=== PATIENT | male | born 2000 | race Caucasian/White ===

== ENCOUNTER 2021-04-06 19:25 | Inpatient (IN) | payer BC, SELFPAY ==
[2021-04-06 20:10] VITALS: BMI 21.2
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
[2021-04-07] MEDS: OLANZapine 10 MG VIAL IM (00:44)
[2021-04-07 00:50] VITALS: BP 140/91; PULSE 104; RESP 18; TEMP 37; O2SAT 100
[2021-04-07 01:05] VITALS: BP 139/76; PULSE 76; RESP 18; TEMP 37.1; O2SAT 100
[2021-04-07] MEDS: diphenhydrAMINE HCL 25 MG TABLET 50 MG PO (01:09)
[2021-04-07] MEDS: Acetaminophen 325 MG TABLET 650 MG PO (01:09)
[2021-04-07 01:30] VITALS: RESP 18
--- NOTE | 2021-04-07 01:33 | PC.NURSE ---
Addendum entered by Leslie Orosco RN 04/07/21 04:26: Correction: At 00:44am (not 00:45am) IM Zyprexa 10mg is administered to Left Deltoid without incident. Original Note: Patient is alert to self and recognizes he is in a hospital, though is vague on name. Not alert to date/time/situation. Patient is dressed in his own T-shirt with hospital Raghav Pants. His hygiene is poor. He is noted to have skin build-up/dirt to scalp with skin irritation/rash to forehead/scalp. Brown dirt comes off his skin when cleansed with an alcohol pad. Patient presents with pressured loud speech pattern and manic behaviors; Grandiose protestant/magical thought content with poor insight and judgment. Patient carries a large Nearpod Bible around with him, reading passages to other patients unprovoked. Patient insists his Rights are being violated, he is being held against his will. He demands to have a repairer present and then makes several protestant based statements. Patient paces throughout the unit from time of arrival till approximately 01:15am. Patient is intrusive with staff and peers; touching them with items, hugging, shoving papers in front of them, asking them if they know their rights, sitting, standing, walking directly next to them almost touching and demanding they play games with him. Patient follows staff member into nutrition room and starts helping himself to items in the refrigerator. Without warning he hugs the staff member, opens a full gallon of water and begins chugging it. He tells the staff he has bugs crawling on him and that he is crazy. Patient refuses P.O. medications several times throughout evening hours. At approximately 00:00, Patient attempts to enter another patient's room, opening the door and entering the threshold. He is redirected by staff, but immediately turns around and tries to re-enter. Staff certified nursing assistant front the of doorway blocking him from entering. Patient makes threat of violence toward staff, I prefer not to get violent with you, citing he must enter the room due to it being the Portal. Patient is redirected again by a 2nd staff member. Patient continues to try to enter the other patient's room. Security is called and patient is walked down to Dayroom and offered P.O. medications, which he refuses. Patient contracts for safety stating he will stay in Dayroom and not enter another patient's room. As soon as Security officers leave the unit, the patient stands up and walks back down to same patient's room and tries again to enter the room. He is again stopped by staff and redirected to go to his room or Dayroom, which he refuses. Security is called again and patient is escorted to Dayroom. Provider Renita Thomason is contacted to report behaviors and request IM medications as patient refuses P.O. medications. At 00:30 IM Zyprexa 10 mg is ordered. Patient is presented with a choice of P.O. or IM medications. Patient states he refuses both. Patient demands one of the security officers give him his watch. At 00:35 Nursing Internetworking Technician, Shelia Pires notified of situation and possible IM medication restraint. At 00:45am IM Zyprexa 10mg is administered to Left Deltoid without incident. At 00:49 Hospitalist Queenie Carrillo is contacted to assess patient. Patient is provided with emotional support and hydration immediately following IM injection. Vitals are assessed and found to be within normal limits with the exception of a slightly elevated Heart Rate. 00:50 Vitals: Temp-98.6, BP-140/91, HR-104, RR-18, O2- 100%. Patient requests to go to room and go to bed requesting Benadryl and Tylenol at 00:50, Provider Renita Thomason contacted with request and Benadryl is ordered. Patient is provided with hydration options at bedside 01:05 Vitals: Temp - 98.7. BP 139/76, HR-76, RR-18, O2-100%. Benadryl and Tylenol administered at 01:09. 01:15 Vitals: Temp-97.2, BP-140/83, HR-66, RR-16, O2-98% Patient is sleeping, resting comfortably in bed at 01:15am. Respiration Rate at 01:30 is 18, patient is noted by staff to roll over in bed, still resting comfortably. At 01:38 Hospitalist Queenie Carrillo attended patient at bedside for assessment.
--- NOTE | 2021-04-07 01:42 | P.EN_ITS ---
Event Note Date of Service: 04/07/21 Event Note: Called by nurse, patient was being intrusive, uncooperative, disru ptive, invading boundaries of other patients, threatening staff; subsequently, patient was given Zyprexa 10 mg IM at 12:45 a.m.. I evaluated the patient at 0140; he is resting comfortably, in no acute distress.
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
[2021-04-07 03:01] VITALS: BP 140/83; PULSE 66; RESP 16; TEMP 36.2; O2SAT 98
[2021-04-07] MEDS: Haloperidol Lactate 5 MG/ML VIAL 10 MG IM (15:18)
[2021-04-07] MEDS: diphenhydrAMINE HCL 50 MG/ML VIAL IM (15:19)
[2021-04-07] MEDS: LORazepam 2 MG/ML VIAL IM (15:19)
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
[2021-04-07 16:00] VITALS: BP 115/59; PULSE 97; RESP 17; TEMP 37.1; O2SAT 100
--- NOTE | 2021-04-07 16:27 | PC.NURSE ---
This morning patient awoke before 8am, declined breakfast. He required redirection as he was entering other patient's rooms. He pushed on exit doors on the north and south side of unit. Patient stated, You can't keep me here. Let me out now. Patient was encouraged to discuss discharge with his attending physician today. He was placed on constant observation at nursing discretion. Patient was offered prn ativan and zyprexa po which he declined. Patient was observed playing chess, interacting with peer. He was observed writing on his skin with safety pen. He was observed removing pieces from board games. He was noted taking unit items ( i.e. remote control) and storing them in a paper bag which he carried around. He declined visit from parents who presented to the unit. At one point patient tried to exit the unit. He attempted to push through staff at that time but was redirected. Throughout the shift he required frequent redirection out of other pt's rooms. He pulled down his pants in the day room, took apart games and puzzles and generally exhibited disorganized behavior requiring staff redirection.At 1445 patient was again offered zyprexa and ativan po prn but declined. At approximately 1500 patient was redirected out of a peer's room but was resistant to redirection, he reached for a mop handle and chemicals on the housekeeping cart. Security was called and Dr Gomez ordered chemical restraint for safety of patient and others. Patient received the chemical restraint without physical or mechanical restraint. He remained alert and somewaht agitated for approximately 15 minutes, then fell asleep. He remains asleep resting comfortably in bed at present. Vital signs are stable
[2021-04-07 16:55] VITALS: BP 127/66; PULSE 86; RESP 16; TEMP 36.9; O2SAT 100
--- NOTE | 2021-04-08 11:54 | HO.HSGERICON ---
History of Present Illness Data of Consult Service Date: 04/08/21 Primary Care Provider: Gian Barone DO HPI Reason for consult: medical evaluation 18 year male with schiozophrenia and other Psychotic desorder admitted for decompensation. He is very desorganized at the moment and could hardly participate in the evaluation. Nothing he says make sense, however was not agresive. Review of Systems Review of Systems: Yes Unobtainable due to mental status PMFSH Social History Household Members: Family Do you presently have visiting nurse or other home services: No Patient Tobacco Use Status: Never used Tobacco e-Cigarette/Vaping Use: Never Used Currently Displaying Signs/Symptoms of Drug Intoxication Withdrawal: No Advance Directives: No Do you have thoughts of harming others: None Do you have a plan to hurt others: No Plan service: No Sexual orientation: Don't Know Meds Allergies Allergy/AdvReac Type Severity Reaction Status Date / Time No Known Allergies Allergy Verified 04/06/21 20:25 Active Medications: Current Medications Generic Name Dose Route Start Last Admin Trade Name Freq PRN Reason Stop Dose Admin Acetaminophen 650 mg 04/06/21 20:25 04/07/21 01:09 Acetaminophen 325 Mg Tablet PO 650 mg Q6H PRN Administration Headache/Pain Mild Scale (1-3) Al Hydroxide/Mg Hydroxide 30 ml 04/06/21 20:25 Magnesium Hydrox/Alum Hydrox 30 Ml Oral.Susp PO Q6H PRN Heartburn/Nausea Diphenhydramine HCl 50 mg 04/07/21 01:04 04/07/21 01:09 Diphenhydramine Hcl 25 Mg Tablet PO 50 mg Q6H PRN Administration agitation, insomnia Hydroxyzine HCl 25 mg 04/06/21 20:25 Hydroxyzine Hcl 25 Mg Tablet PO Q6H PRN Anxiety Lorazepam 2 mg 04/06/21 21:42 Lorazepam 1 Mg Tablet PO Q4H PRN agitation Magnesium Hydroxide 30 ml 04/06/21 20:25 Milk Of Magnesia 30 Ml Oral.Susp PO DAILY PRN Constipation Olanzapine 5 mg 04/06/21 21:42 Olanzapine 5 Mg Tablet PO Q4H PRN agitation, psychosis Trazodone HCl 50 mg 04/06/21 20:25 Trazodone Hcl 50 Mg Tablet PO BEDTIME PRN Insomnia Assessment and Plan (1) Schizophrenia, unspecified: Status: Acute 20/m with decompensated Schizophrenia/Psychosis--not acute medical issues. Continue present Psychatric care Physical Exam Vital Signs: Last Vital Signs Temp 98.4 F 04/07/21 16:55 Pulse 86 04/07/21 16:55 Resp 16 04/07/21 16:55 BP 127/66 04/07/21 16:55 Pulse Ox 100 04/07/21 16:55 Body Mass Index 21.2 Constitutional Awake and Alert, cooperated for lung and heart exam Cardiovascular RRR, No M/R/G, S1 S2, No S3 S4, No pedal edema Respiratory Lungs clear, No respiratory distress Gastrointestinal Non tender, Non-distended Skin no rash noted Neurological Alert but not oriented Psychological very desorganized Neuro Cranial nerves: Yes CN's II-XII intact bilaterally
[2021-04-08 12:50] VITALS: BP 138/85; PULSE 116; RESP 17; TEMP 36.8; O2SAT 99
--- NOTE | 2021-04-08 14:08 | P.PNPSI_ITS ---
Subjective Subjective Date of Service: 04/08/21 Reason For Visit: Bipolar disorder Interim History: pt seen in his room, lying in bed. squirmy, a bit, pulling sheet over his face covering it and then removing it again. pt requesting discharge, declining and informing pt to sign 3-day notice. MD explains concern for pt's mental health and asks if he would be willing to take medication. pt declines. MD states nevertheless MD is compelled to prescribe but that he may decline when offered. commitment is broached, goodwin warning given. pt states his medicine is rastafarian and he doesn't need to be here or take medication. per staff, pt was chemically restrained yesterday after repeatedly entering peers' rooms, disrobing in the milieu, and taking a mop handle and chemicals from the housekeeping cart. he was given haldol 10, ativan 2, benadryl 50 IM and slept from 4 pm yesterday through 7 am today. once up this morning at 0700, has again been entering peers' rooms. was placed on 1:1 for safety. appearing disorganized to staff, moving objects about the unit, stacking trash cans. Mental Status Exam Mental Status Exam Narrative: appropriately dressed and groomed. PMA of covering and uncovering face with sheet. unable to fully cooperative with interview. speech incr in amount, nml in rate,, nml in loudness, decr in latency, nml in prosody. thoughts disorganized. affect constricted, appropriate to context, normo- intense, non-labile. mood not assessed. no SI/HI/AVH expressed. Diagnostics Vital Signs (24Hr): Vital Signs - 24 hr 04/07/21 16:00 04/07/21 16:55 04/08/21 12:50 Temperature 98.7 F 98.4 F 98.3 F Pulse Rate 97 86 116 H Respiratory Rate 17 16 17 Blood Pressure 115/59 L 127/66 138/85 Pulse Oximetry 100 100 99 Body Mass Index 21.2 Medications Medications Current Medications Generic Name Dose Route Start Last Admin Trade Name Freq PRN Reason Stop Dose Admin Acetaminophen 650 mg 04/06/21 20:25 04/07/21 01:09 Acetaminophen 325 Mg Tablet PO 650 mg Q6H PRN Administration Headache/Pain Mild Scale (1-3) Al Hydroxide/Mg Hydroxide 30 ml 04/06/21 20:25 Magnesium Hydrox/Alum Hydrox 30 Ml Oral.Susp PO Q6H PRN Heartburn/Nausea Diphenhydramine HCl 50 mg 04/07/21 01:04 04/07/21 01:09 Diphenhydramine Hcl 25 Mg Tablet PO 50 mg Q6H PRN Administration agitation, insomnia Hydroxyzine HCl 25 mg 04/06/21 20:25 Hydroxyzine Hcl 25 Mg Tablet PO Q6H PRN Anxiety Lorazepam 2 mg 04/06/21 21:42 Lorazepam 1 Mg Tablet PO Q4H PRN agitation Magnesium Hydroxide 30 ml 04/06/21 20:25 Milk Of Magnesia 30 Ml Oral.Susp PO DAILY PRN Constipation Olanzapine 5 mg 04/06/21 21:42 Olanzapine 5 Mg Tablet PO Q4H PRN agitation, psychosis Trazodone HCl 50 mg 04/06/21 20:25 Trazodone Hcl 50 Mg Tablet PO BEDTIME PRN Insomnia Allergies Allergies Allergy/AdvReac Type Severity Reaction Status Date / Time No Known Allergies Allergy Verified 04/06/21 20:25 Assessment & Plan Assessment & Plan (1) Evelyne: Status: Acute Code(s): F30.9 - Manic episode, unspecified Assessment and Plan: 20/m with decompensated bipolar diathesis --not acute medical issues. Assessment and Plan: offer lithium 450 BID offer zydis 20 QHS PRNs for unsafe behavior or agitation (haldol 10, ativan 2, benadryl 50 IM has worked well). pt planning to file 3-day notice; if he is unable to do so himself, we may need to file one on his behalf. Greater than 50% of the session was spent on counseling and/or coordination of care Reason for contiued inpatient stay Substantial Risk for: inability to function and rapid decompensation
--- NOTE | 2021-04-08 15:23 | PC.NURSE ---
Patient refusing to move away from unit doors during discharge of peer, approx 1310. Multiple staff attempts to direct patient to another care area, or room however patient refused to move. Did not respond to staffs efforts for 1:1 or distraction. Security called, patient continued unresponsive to direction, physical escort to room by security. No further intervention needed at the time.
[2021-04-08 20:00] VITALS: BP 138/80; PULSE 81; TEMP 37.1; O2SAT 97
[2021-04-08] MEDS: diphenhydrAMINE HCL 50 MG/ML VIAL IM (20:22)
--- NOTE | 2021-04-08 20:52 | PC.NURSE ---
possible dystonic reaction with contraction to neck, bending backwards with the occipital portion of head touching his back. Eyes also rolled back. patient attempting to hold his head straight with his hands. benadryl im given without event, results pending. continues with 1:1 observer.
[2021-04-09] MEDS: Lithium Carbonate ER 450 MG TABLET.ER PO ×2 (01:10→23:35)
[2021-04-09] MEDS: diphenhydrAMINE HCL 25 MG TABLET 50 MG PO ×2 (02:07→23:36)
[2021-04-09] MEDS: hydrOXYzine HCL 25 MG TABLET PO (03:07)
[2021-04-09 04:14] VITALS: BP 166/84; PULSE 94; O2SAT 100
[2021-04-09] MEDS: OLANZapine 5 MG TABLET PO (05:25)
[2021-04-09] MEDS: LORazepam 1 MG TABLET 2 MG PO (05:25)
[2021-04-09 06:07] VITALS: BP 144/67; PULSE 95; TEMP 36.6; O2SAT 100
--- NOTE | 2021-04-09 13:14 | P.PNPSI_ITS ---
Subjective Subjective Date of Service: 04/09/21 Reason For Visit: Bipolar disorder Interim History: pt found walkign the halls. presented pt with paperwork on revocation of CV. pt appeared somewhat agitated by the news and demanded to be read his deepali rights and to have copies of sections 7 and 8 of the mental health code provided to him. he was informed a environmental services aide would be assigned to him and was provided with copies of sections 7 and 8. he demanded copies of all [place] mental health related statues; redirected pt to discuss such matters wit [facility] sports attorney once his sports attorney was in touch with him. he had no other requests or concerns. per staff, pt has appeared anxious and tearful, oppositional and uncooperative. testing doors. ate well, visible in milieu. took shower with clothes on, brought trash can into shower with him. yesterday afternoon pt was observed with his head in an awkward position and out of concern for dystonia was given benadryl 50 mg IM x1. took lithium, benadryl, hydroxyzine last night (did not take zyprexa). was awake until the wee hours of the morning; appears to have received some PRNs for sleep at around 0500 (including ativan 2 mg and zyprexa 5 mg). slept after that through at least 0930. Mental Status Exam Mental Status Exam Narrative: appropriately dressed and groomed. PMA of mild tremulousness throughout. unable to fully cooperative with interview. speech incr in amount, rate. nml in loudness, decr in latency, nml in prosody. thoughts focused on legal rights and process. affect constricted, appropriate to context, hyper- intense, min-labile. mood not assessed. no SI/HI/AVH expressed. Diagnostics Vital Signs (24Hr): Vital Signs - 24 hr 04/08/21 20:00 04/09/21 04:14 04/09/21 06:07 Temperature 98.7 F 97.9 F Pulse Rate 81 94 95 Blood Pressure 138/80 166/84 H 144/67 H Pulse Oximetry 97 100 100 Body Mass Index 21.2 Medications Medications Current Medications Generic Name Dose Route Start Last Admin Trade Name Freq PRN Reason Stop Dose Admin Acetaminophen 650 mg 04/06/21 20:25 04/07/21 01:09 Acetaminophen 325 Mg Tablet PO 650 mg Q6H PRN Administration Headache/Pain Mild Scale (1-3) Al Hydroxide/Mg Hydroxide 30 ml 04/06/21 20:25 Magnesium Hydrox/Alum Hydrox 30 Ml Oral.Susp PO Q6H PRN Heartburn/Nausea Diphenhydramine HCl 50 mg 04/07/21 01:04 04/09/21 02:07 Diphenhydramine Hcl 25 Mg Tablet PO 50 mg Q6H PRN Administration agitation, insomnia Hydroxyzine HCl 25 mg 04/06/21 20:25 04/09/21 03:07 Hydroxyzine Hcl 25 Mg Tablet PO 25 mg Q6H PRN Administration Anxiety [place] Carbonate 450 mg 04/08/21 21:00 04/09/21 10:22 [place] Carbonate Er 450 Mg Tablet.Er PO Not Given BID EMMANUEL Lorazepam 2 mg 04/06/21 21:42 04/09/21 05:25 Lorazepam 1 Mg Tablet PO 2 mg Q4H PRN Administration agitation Magnesium Hydroxide 30 ml 04/06/21 20:25 Milk Of Magnesia 30 Ml Oral.Susp PO DAILY PRN Constipation Olanzapine 5 mg 04/06/21 21:42 04/09/21 05:25 Olanzapine 5 Mg Tablet PO 5 mg Q4H PRN Administration agitation, psychosis Olanzapine 20 mg 04/08/21 21:00 04/08/21 22:59 Olanzapine Odt 10 Mg Tab.Rapdis TRANSLINGU Not Given BEDTIME EMMANUEL Trazodone HCl 50 mg 04/06/21 20:25 Trazodone Hcl 50 Mg Tablet PO BEDTIME PRN Insomnia Allergies Allergies Allergy/AdvReac Type Severity Reaction Status Date / Time No Known Allergies Allergy Verified 04/06/21 20:25 Assessment & Plan Assessment & Plan (1) Evelyne: Status: Acute Code(s): F30.9 - Manic episode, unspecified Assessment and Plan: 20/m with decompensated bipolar diathesis --no acute medical issues. Assessment and Plan: offer lithium 450 BID offer zydis 20 QHS PRNs for unsafe behavior or agitation (haldol 10, ativan 2, benadryl 50 IM has worked well). pt filed and then retracted 3-day notice. CV revoked and commitment filed for on 04/09. Greater than 50% of the session was spent on counseling and/or coordination of care Reason for contiued inpatient stay Substantial Risk for: inability to function
[2021-04-09] MEDS: OLANZapine ODT 10 MG TAB.RAPDIS 20 MG TRANSLINGU (23:35)
[2021-04-09 23:57] VITALS: BP 139/67; PULSE 86; TEMP 37.1; O2SAT 100
[2021-04-10] MEDS: LORazepam 1 MG TABLET 2 MG PO (00:14)
--- NOTE | 2021-04-10 12:40 | HO.PSYCHPN ---
Subjective Subjective Date of Service: 04/10/21 Reason For Visit: Bipolar disorder Interim History: MD stopped by pt's room twice in the morning, second time just before noon. pt did not rouse to voice first time, he did rouse to voice second time but then went back to sleep on attempted conversation by MD. it was felt to be more therapeutic to allow pt to sleep than to awaken him. per staff, pt slept until 11 yesterday. after he got up he was pacing, testing doors. some bizarre behavior, such as eating his meal seated on the floor of his room. took lithium ans zyprexa and benadryl and ativan last NOC. Mental Status Exam Mental Status Exam Narrative: pt asleep during multiple attempts at interview. Diagnostics Vital Signs (24Hr): Vital Signs - 24 hr 04/09/21 23:57 Temperature 98.7 F Pulse Rate 86 Blood Pressure 139/67 Pulse Oximetry 100 Body Mass Index 21.2 Medications Medications Current Medications Generic Name Dose Route Start Last Admin Trade Name Harjitq PRN Reason Stop Dose Admin Acetaminophen 650 mg 04/06/21 20:25 04/07/21 01:09 Acetaminophen 325 Mg Tablet PO 650 mg Q6H PRN Administration Headache/Pain Mild Scale (1-3) Al Hydroxide/Mg Hydroxide 30 ml 04/06/21 20:25 Magnesium Hydrox/Alum Hydrox 30 Ml Oral.Susp PO Q6H PRN Heartburn/Nausea Diphenhydramine HCl 50 mg 04/07/21 01:04 04/09/21 23:36 Diphenhydramine Hcl 25 Mg Tablet PO 50 mg Q6H PRN Administration agitation, insomnia Hydroxyzine HCl 25 mg 04/06/21 20:25 04/09/21 03:07 Hydroxyzine Hcl 25 Mg Tablet PO 25 mg Q6H PRN Administration Anxiety [place] Carbonate 450 mg 04/08/21 21:00 04/10/21 12:21 [place] Carbonate Er 450 Mg Tablet.Er PO Not Given BID EMMANUEL Lorazepam 2 mg 04/06/21 21:42 04/10/21 00:14 Lorazepam 1 Mg Tablet PO 2 mg Q4H PRN Administration agitation Magnesium Hydroxide 30 ml 04/06/21 20:25 Milk Of Magnesia 30 Ml Oral.Susp PO DAILY PRN Constipation Olanzapine 5 mg 04/06/21 21:42 04/09/21 05:25 Olanzapine 5 Mg Tablet PO 5 mg Q4H PRN Administration agitation, psychosis Olanzapine 20 mg 04/08/21 21:00 04/09/21 23:35 Olanzapine Odt 10 Mg Tab.Rapdis TRANSLINGU 20 mg BEDTIME EMMANUEL Administration Trazodone HCl 50 mg 04/06/21 20:25 Trazodone Hcl 50 Mg Tablet PO BEDTIME PRN Insomnia Allergies Allergies Allergy/AdvReac Type Severity Reaction Status Date / Time No Known Allergies Allergy Verified 04/06/21 20:25 Assessment & Plan Assessment & Plan (1) Evelyne: Status: Acute Code(s): F30.9 - Manic episode, unspecified Assessment and Plan: / with decompensated bipolar diathesis --no acute medical issues. Assessment and Plan: lithium 450 BID zydis 20 QHS PRNs for unsafe behavior or agitation (haldol 10, ativan 2, benadryl 50 IM has worked well). pt filed and then retracted 3-day notice. CV revoked and commitment filed for on 04/09. pt accepting medication more consistently and sleeping much more starting around 04/09. Greater than 50% of the session was spent on counseling and/or coordination of care Reason for contiued inpatient stay Substantial Risk for: inability to function
[2021-04-11] MEDS: diphenhydrAMINE HCL 25 MG TABLET 50 MG PO ×3 (00:59→20:58)
[2021-04-11 06:00] VITALS: RESP 18; O2SAT 99
--- NOTE | 2021-04-11 07:09 | HO.PSYCHPN ---
Subjective Subjective Date of Service: 04/13/21 Reason For Visit: Bipolar disorder Interim History: Pt reports his christian is God and the sun. He asks if he can go out for fresh air but informed of risk of him eloping as he has been exit seeking. Pt reports wanting to leave hospital today because he has to follow his christian. He reports he only has God as no one else understands what he is going through. He denies SI/HI. He did take olanzapine 20mg prior to fresh air but when out had difficulty being redirected. He was agitated for most of the evening, demanding to be discharged. Review of Systems Review of Systems Yes Unobtainable due to mental status Mental Status Exam Mental Status Exam Narrative: pt asleep during multiple attempts at interview. Diagnostics Vital Signs (24Hr): Vital Signs - 24 hr 04/12/21 19:18 04/12/21 19:30 04/12/21 19:40 Temperature 98.7 F 97.2 F Pulse Rate 168 H 136 H 138 H Respiratory Rate 22 H 20 20 Blood Pressure 116/81 143/90 H Pulse Oximetry 97 98 Body Mass Index 21.2 Medications Medications Current Medications Generic Name Dose Route Start Last Admin Trade Name Freq PRN Reason Stop Dose Admin Acetaminophen 650 mg 04/06/21 20:25 04/07/21 01:09 Acetaminophen 325 Mg Tablet PO 650 mg Q6H PRN Administration Headache/Pain Mild Scale (1-3) Al Hydroxide/Mg Hydroxide 30 ml 04/06/21 20:25 Magnesium Hydrox/Alum Hydrox 30 Ml Oral.Susp PO Q6H PRN Heartburn/Nausea Diphenhydramine HCl 75 mg 04/12/21 08:00 04/12/21 13:17 Diphenhydramine Hcl 25 Mg Tablet PO 25 mg Q6H PRN Administration agitation, insomnia [place] Carbonate 450 mg 04/08/21 21:00 04/13/21 03:36 [place] Carbonate Er 450 Mg Tablet.Er PO Not Given BID EMMANUEL Magnesium Hydroxide 30 ml 04/06/21 20:25 Milk Of Magnesia 30 Ml Oral.Susp PO DAILY PRN Constipation Olanzapine 5 mg 04/06/21 21:42 04/09/21 05:25 Olanzapine 5 Mg Tablet PO 5 mg Q4H PRN Administration agitation, psychosis Olanzapine 20 mg 04/08/21 21:00 04/13/21 03:36 Olanzapine Odt 10 Mg Tab.Rapdis TRANSLINGU Not Given BEDTIME EMMANUEL Trazodone HCl 50 mg 04/06/21 20:25 Trazodone Hcl 50 Mg Tablet PO BEDTIME PRN Insomnia Allergies Allergies Allergy/AdvReac Type Severity Reaction Status Date / Time No Known Allergies Allergy Verified 04/06/21 20:25 Assessment & Plan Assessment & Plan (1) Evelyne: Status: Acute Code(s): F30.9 - Manic episode, unspecified Assessment and Plan: / with decompensated bipolar diathesis --no acute medical issues. Assessment and Plan: lithium 450 BID zydis 20 QHS PRNs for unsafe behavior or agitation (haldol 10, ativan 2, benadryl 50 IM has worked well). pt filed and then retracted 3-day notice. CV revoked and commitment filed for on 04/09. pt accepting medication more consistently and sleeping much more starting around 04/09. Greater than 50% of the session was spent on counseling and/or coordination of care Reason for contiued inpatient stay Substantial Risk for: inability to function
[2021-04-11] MEDS: OLANZapine ODT 10 MG TAB.RAPDIS 20 MG TRANSLINGU (10:29)
--- NOTE | 2021-04-11 10:45 | PC.NURSE ---
Per provider Priya Coelho give pt unscheduled dose of zyprexa 20mg now, pt agreeable to take medication at this time. Pt medicated per EMAR. Provider to accompany pt on fresh air break once security is available for escort.
--- NOTE | 2021-04-11 14:06 | PC.NURSE ---
Patient was taken outside for an air break per provider. This nurse, and security were outside with the patient in the designated area when patient began to escalate. Patient started to shout my catholic is the earth, I need to be next to the plants . Patient was told he is unable to go outside of the designated area. Patient started to scream and push against the outside caging. Stated that he would not go back to the floor. Patient continued to scream. Patient had to be assisted back to the floor.
[2021-04-11 18:00] VITALS: BP 136/82; PULSE 79; RESP 18; TEMP 36.7
[2021-04-12 06:00] VITALS: PULSE 106; O2SAT 99
--- NOTE | 2021-04-12 07:12 | HO.PSYCHPN ---
Subjective Subjective Date of Service: 04/13/21 Reason For Visit: Bipolar disorder Interim History: Pt reports he can hear staff telling him that homosexuality is a sin. Pt reports he is asexual but may be attracted to males. He reports not feeling safe in the unit. He reports staff are out to get him. He is holding bible, intermittently agitated. He demands to be discharged as he does not think he needs treatment. Initially decline taking any medications but later had olanzapine 20mg. He continues to escalate in evening, not responding to redirection requiring restraint in chair. He agreed to take haldol 10mg po and ativan 2mg po. He did receive ativan 2mg IM as po medications taking longer to show effect. Review of Systems Review of Systems Yes Unobtainable due to mental status Mental Status Exam Mental Status Exam Narrative: pt asleep during multiple attempts at interview. Diagnostics Vital Signs (24Hr): Vital Signs - 24 hr 04/12/21 19:18 04/12/21 19:30 04/12/21 19:40 Temperature 98.7 F 97.2 F Pulse Rate 168 H 136 H 138 H Respiratory Rate 22 H 20 20 Blood Pressure 116/81 143/90 H Pulse Oximetry 97 98 Body Mass Index 21.2 Medications Medications Current Medications Generic Name Dose Route Start Last Admin Trade Name Freq PRN Reason Stop Dose Admin Acetaminophen 650 mg 04/06/21 20:25 04/07/21 01:09 Acetaminophen 325 Mg Tablet PO 650 mg Q6H PRN Administration Headache/Pain Mild Scale (1-3) Al Hydroxide/Mg Hydroxide 30 ml 04/06/21 20:25 Magnesium Hydrox/Alum Hydrox 30 Ml Oral.Susp PO Q6H PRN Heartburn/Nausea Diphenhydramine HCl 75 mg 04/12/21 08:00 04/12/21 13:17 Diphenhydramine Hcl 25 Mg Tablet PO 25 mg Q6H PRN Administration agitation, insomnia [place] Carbonate 450 mg 04/08/21 21:00 04/13/21 03:36 [place] Carbonate Er 450 Mg Tablet.Er PO Not Given BID EMMANUEL Magnesium Hydroxide 30 ml 04/06/21 20:25 Milk Of Magnesia 30 Ml Oral.Susp PO DAILY PRN Constipation Olanzapine 5 mg 04/06/21 21:42 04/09/21 05:25 Olanzapine 5 Mg Tablet PO 5 mg Q4H PRN Administration agitation, psychosis Olanzapine 20 mg 04/08/21 21:00 04/13/21 03:36 Olanzapine Odt 10 Mg Tab.Rapdis TRANSLINGU Not Given BEDTIME EMMANUEL Trazodone HCl 50 mg 04/06/21 20:25 Trazodone Hcl 50 Mg Tablet PO BEDTIME PRN Insomnia Allergies Allergies Allergy/AdvReac Type Severity Reaction Status Date / Time No Known Allergies Allergy Verified 04/06/21 20:25 Assessment & Plan Assessment & Plan (1) Evelyne: Status: Acute Code(s): F30.9 - Manic episode, unspecified Assessment and Plan: with decompensated bipolar diathesis --no acute medical issues. Assessment and Plan: lithium 450 BID zydis 20 QHS PRNs for unsafe behavior or agitation (haldol 10, ativan 2, benadryl 50 IM has worked well). pt filed and then retracted 3-day notice. CV revoked and commitment filed for on 04/09. pt accepting medication more consistently and sleeping much more starting around 04/09. Greater than 50% of the session was spent on counseling and/or coordination of care Reason for contiued inpatient stay Substantial Risk for: harm to others and inability to function
--- NOTE | 2021-04-12 10:52 | PC.NURSE ---
Patient is alert to self and location. Vague on date/time and situation. Patient presents with pressured speech and intense eye contact. Patient refusing Vitals and Medications at this time. Patient meets with father on unit for brief period of time. Patient paces in front of nurses station throughout morning hours demanding staff look up phone numbers stating My rights have been violated. Patient accuses staff of making homophobic statements towards him. Patient becomes agitated and starts yelling Call Security when told he can use unit phone instead of portable phone in his room. Call the police. I'd rather be arrested than put up with this. Patient makes these statements over and over again. Patient requires frequent redirection for yelling at nurse's station.
[2021-04-12] MEDS: OLANZapine ODT 10 MG TAB.RAPDIS 20 MG TRANSLINGU (11:45)
[2021-04-12] MEDS: diphenhydrAMINE HCL 25 MG TABLET 75 MG PO ×3 (11:46→13:17)
[2021-04-12] MEDS: Lithium Carbonate ER 450 MG TABLET.ER PO (12:52)
--- NOTE | 2021-04-12 16:57 | PC.NURSE ---
Pt calm, cooperative, following directions, and gave consent for staff to speak with . Jeramie Kimbrough about his course of tx. T/W spoke with the forestry aide at the pt's request after pt spoke with him. The forestry aide does not believe that pt is psychotic, and has just found God . Associate Professor was encouraged to visit with pt during visiting hours. After T/W spoke with Fr. Kimbrough, pt spoke with him on the cordless pt phone in his room, and became agitated. Pt was heard screaming and sobbing, and was found standing in the bathroom. Pt was no longer on the phone, and appeared to be attempting to throw the phone into the toilet, I need to file a report with the disabled person's phone line , you're depriving me of my human rights, and you stole my Bible (Bible was visible on pt's bookcase). Pt demanding the [employer] police number and attempting to call 911 on the pt phone in the hallway, increasingly agitated, tangential, refusing to leave the nurses station windows. Security called for assistance as all attempts made by staff to redirect pt were failed.
[2021-04-12] MEDS: LORazepam 1 MG TABLET 2 MG PO (17:30)
[2021-04-12] MEDS: HaloperidoL 5 MG TABLET 10 MG PO (17:53)
[2021-04-12] MEDS: LORazepam 2 MG/ML VIAL IM (19:14)
[2021-04-12 19:18] VITALS: BP 116/81; PULSE 168; RESP 22; TEMP 37.1; O2SAT 97
[2021-04-12 19:30] VITALS: PULSE 136; RESP 20; TEMP 36.2; O2SAT 98
--- NOTE | 2021-04-12 19:30 | PM.EVENT ---
Event Note Date of Service: 04/12/21 Event Note: Called to the room because patient was being disruptive/agitated. Saw the patient at 1930, patient is refusing to speak with me, demanding that he be let out of his restraints, states that he has rights, does not want me to listen to his chest with my stethoscope. He is moving all 4 limbs, yelling, appears to still be quite agitated. I spoke with the security officers outside the room, they said they had to put him in restraints because of his disruptive behavior and the fact that he would not follow directions. The patient did receive 2 mg of oral Ativan, 2 mg of intramuscular Ativan, as well as 10 mg of Haldol, and he is still very agitated. Agree with the medical therapy that was given. Agree that the patient needs restraints for now for his safety and for the safety of others.
[2021-04-12 19:40] VITALS: BP 143/90; PULSE 138; RESP 20
--- NOTE | 2021-04-12 20:40 | PC.NURSE ---
Pt's mother, Margaret Alexis, was notified at 2030 of pt's restraint that occurred at 1910 today.
--- NOTE | 2021-04-12 21:20 | PC.NURSE ---
Covering providerFrancisca notified at 17:09pm of patient's ongoing behaviors; screaming, yelling in bedroom/bathroom and making constant demands/harassment/yelling at nurse?s station as well as behavior with portable phone in bathroom. Provider gave Telephone Order for Haldol 10mg and Ativan 2 mg IM if patient continues to escalate and is unable to calm down. Patient also has P.O. Ativan 2mg available in [facility], which he has been refusing, though he had asked this fha underwriter for something to help him stay calm. Patient continued to be verbally abusive to staff at Nursing Station, making demands, stating his Rights have been violated, etc. Limits were set with patient several times to end behavior and take space away from nursing station. Patient refused, making threats to continue behavior and call 911, [email or web address] police, Crisis, etc.?Behaviors that had been occurring since 7:30am with the exception of a calm period between 13:00pm - 16:00pm. Security arrived to unit to assist with the agitated patient. Patient is escorted to room to de-escalate. Patient pushing body against security officers stating Do you like touching me? Patient continues to be verbally demanding; demanding he have the portable phone to make calls and for staff to look up phone number for him. Patient states he will not stop his behaviors till he gets what he wants. Patient is informed of M.D. Orders to administer IM medications. Patient states he wants to take Ativan P.O.,Patient is administered P.O. Ativan 2 mg at 17:30pm. Patient continues to try and push past Security officers making demands of staff. Covering Provider, Francisca Coelho, notified at 17:40 pm of patient behaviors and Ativan 2mg P.O. Administration. Covering ProviderFrancisca gave telephone order for one time Haldol 10mg P.O.; Medication administered at 17:53. Covering ProviderFrancisca is notified at 17:57pm that the patient is still escalated with security present.? Covering ProviderFrancisca notified at 18:07pm that patient continues to push his body against security requiring Security to put hands up to block. Staff work with patient to try and contract for safety. By 18:22pm Patient contracts for safety stating he will respect boundaries and take space in his room. Patient in room with door closed, and patient is calm. At 18:33pm, patient is back in the Milieu screaming and yelling, making demands of staff, stating he will call 911 and making insults at staff. Covering Provider, Francisca Coelho notified of behavior. Covering Provider, Francisca Coelho orders 2mg Ativan IM at 18:36pm. Patient is monitored from 18:36pm - 19:04pm to have increasingly escalating behaviors with screaming and yelling disruptive to the milieu with non-compliance of staff requests to take space in room. Covering Provider, Francisca Coelho is notified at 19:04pm that nursing staff feel IM Ativan 2mg needs to be administered due to continued increasing agitation. Provider agreed. Security contacted for support. Patient continues to push security officers upon their arrival.? Patient placed in restraint chair by nursing staff and security at 19:10pm.? IM Ativan 2mg administered to Patient?s Right Deltoid without incident at 19:14pm. Patient screamed, yelled, and screeched at top of lungs, screaming ?I refuse this treatment,? ?Where are you my god?? ?Why have you foresaken me?? while stomping feet and thrashing. Patient continued to be verbally abusive to this fha underwriter. Patient resistant to staff de-escalation methods, deep breathing, processing, etc. screaming and insulting staff instead while stating ?I will not calm down!? Patient escalated from 19:10pm - 19:40pm. Hospitalist, Gian Carrillo attended patient bedside at 19:30pm. Patient began to calm down at 19:40pm with male staff intervention. At 19:52pm patient offered toileting and took staff up on offer. Patient fully out of restraint chair at 19:55pm. Once out of restraints, Patient refused to use bathroom and continued to insult staff. Patient laid on bed in Anteroom and relaxed. Patient moved to assigned bedroom at 20:07pm by security.
--- NOTE | 2021-04-13 03:37 | PC.NURSE ---
Gian was given IM medication and was sedated. Patient fell asleep at 1999, and nurse felt patient needed his sleep. Patient continues to sleep at this time, HS medications were not given due to sedation.
[2021-04-13 06:00] VITALS: BP 137/77; PULSE 121; RESP 20; TEMP 37.1; O2SAT 100
[2021-04-13] MEDS: Lithium Carbonate ER 450 MG TABLET.ER PO ×2 (08:46→20:21)
--- NOTE | 2021-04-13 16:04 | HO.PSYCHPN ---
Subjective Subjective Date of Service: 04/13/21 Reason For Visit: Bipolar disorder Interim History: pt calm and cooperative, repeatedly asking to discharge from the hospital. redirected to the fact that there will be a hearing on at which that issue will be determined. pt alleges violation of his rights and appears to lack an appreciation of the process in which he is involved. accuses inpt staff of telling him homosexuality is wrong, unable to consider that perhaps he is experiencing AH. per staff, slept through the night after having received numerous PRNs yesterday, including zyprexa, haldol, ativan. inconsistently taking scheduled medications. there was a restraint yesterday, per RN report. Mental Status Exam Mental Status Exam Narrative: appropriately dressed and groomed. no PMA/PMR. unable to fully cooperate with interview. speech incr in amount, rate. nml in loudness, decr in latency, nml in prosody. thoughts focused on legal rights and process, desire to discharge. affect constricted, appropriate to context, hypo-intense, non-labile. mood not assessed. no SI/HI/VH expressed. did report staff telling him homosexuality is evil, which is presumed to be AH. Diagnostics Vital Signs (24Hr): Vital Signs - 24 hr 04/12/21 19:18 04/12/21 19:30 04/12/21 19:40 Temperature 98.7 F 97.2 F Pulse Rate 168 H 136 H 138 H Respiratory Rate 22 H 20 20 Blood Pressure 116/81 143/90 H Pulse Oximetry 97 98 04/13/21 06:00 Temperature 98.7 F Pulse Rate 121 H Respiratory Rate 20 Blood Pressure 137/77 Pulse Oximetry 100 Body Mass Index 21.2 Medications Medications Current Medications Generic Name Dose Route Start Last Admin Trade Name Freq PRN Reason Stop Dose Admin Acetaminophen 650 mg 04/06/21 20:25 04/07/21 01:09 Acetaminophen 325 Mg Tablet PO 650 mg Q6H PRN Administration Headache/Pain Mild Scale (1-3) Al Hydroxide/Mg Hydroxide 30 ml 04/06/21 20:25 Magnesium Hydrox/Alum Hydrox 30 Ml Oral.Susp PO Q6H PRN Heartburn/Nausea Diphenhydramine HCl 75 mg 04/12/21 08:00 04/12/21 13:17 Diphenhydramine Hcl 25 Mg Tablet PO 25 mg Q6H PRN Administration agitation, insomnia [place] Carbonate 450 mg 04/08/21 21:00 04/13/21 08:46 [place] Carbonate Er 450 Mg Tablet.Er PO 450 mg BID EMMANUEL Administration Magnesium Hydroxide 30 ml 04/06/21 20:25 Milk Of Magnesia 30 Ml Oral.Susp PO DAILY PRN Constipation Olanzapine 5 mg 04/06/21 21:42 04/09/21 05:25 Olanzapine 5 Mg Tablet PO 5 mg Q4H PRN Administration agitation, psychosis Olanzapine 20 mg 04/08/21 21:00 04/13/21 03:36 Olanzapine Odt 10 Mg Tab.Rapdis TRANSLINGU Not Given BEDTIME EMMANUEL Trazodone HCl 50 mg 04/06/21 20:25 Trazodone Hcl 50 Mg Tablet PO BEDTIME PRN Insomnia Allergies Allergies Allergy/AdvReac Type Severity Reaction Status Date / Time No Known Allergies Allergy Verified 04/06/21 20:25 Assessment & Plan Assessment & Plan (1) Evelyne: Status: Acute Code(s): F30.9 - Manic episode, unspecified Assessment and Plan: 20/m with decompensated bipolar diathesis --no acute medical issues. Assessment and Plan: lithium 450 BID zydis 20 QHS PRNs for unsafe behavior or agitation (haldol 10, ativan 2, benadryl 50 IM has worked well). pt filed and then retracted 3-day notice. CV revoked and commitment filed for on 04/09. pt accepting medication more consistently and sleeping much more starting around 04/09. Greater than 50% of the session was spent on counseling and/or coordination of care Reason for contiued inpatient stay Substantial Risk for: inability to function and rapid decompensation
[2021-04-13] MEDS: diphenhydrAMINE HCL 25 MG TABLET 75 MG PO ×3 (18:58→21:29)
[2021-04-13] MEDS: OLANZapine ODT 10 MG TAB.RAPDIS 20 MG TRANSLINGU (20:21)
--- NOTE | 2021-04-13 20:31 | PC.NURSE ---
Gian requested some of the Benadryl that he did not take at 1900. Patient took 25mg at 185. Patient given 25 mg at 2029 of the 75 mg dose that is PRN.
--- NOTE | 2021-04-13 21:32 | PC.NURSE ---
Gian requested the final 25 mg of the 75mg prn dose of Benadryl. Patient reports he does not like taking the full dose at once but likes to separate it so that he can help him remain calm.
[2021-04-14] MEDS: diphenhydrAMINE HCL 25 MG TABLET PO (03:36)
[2021-04-14 06:00] VITALS: BP 144/78; PULSE 94; RESP 20; TEMP 36.8; O2SAT 100
[2021-04-14] MEDS: Lithium Carbonate ER 450 MG TABLET.ER PO (07:56)
--- NOTE | 2021-04-14 13:44 | HO.PSYCHPN ---
Subjective Subjective Date of Service: 04/14/21 Reason For Visit: Bipolar disorder Interim History: pt seen with his father. pt demanding discharge, explained legal circumstance, pt appears to not appreciate his position and alleges he is being gaslighted and lied to about the law and his circumstance. he states he is feeling a bit better on the medications and feels he can discharge now to home. he shows MD a substance use recovery group info sheet and states he would like to participate in the group (substance use has not been a focus of treatment). he also shows some printed material with a picture of a coconut palm on it and says he has [place] in [place] insisted pt could not discharge today but would have to await hearing on ; pt then verbally revoked REMEDIOS for his father. acknowledged he could not provide pt's medical information to father, but father offered information for MD, namely that pt has been having behaviors similar to this for the past several years and that he goes periods of days without sleeping and then crashes for several days. in addition, he reports that both his and his 's families have bipolar disorder in their family histories. per staff, pt exhibiting inconsistent behaviors. accusatory of particular staff member who had been assigned to work with him that staff member had told him homosexuality was a sin. staff was removed from being his 1:1, which alleviated his concern. however, in the meantime he filed a complaint with the hospital and attempted to call police. took HS meds last night as well as meds this morning. Mental Status Exam Mental Status Exam Narrative: appropriately dressed and groomed. PMA of pacing, agitated gestures, elevated voice. unable to fully cooperate with interview. speech incr in amount, rate, loudness; decr in latency, nml in prosody. thoughts focused on legal rights and process, desire to discharge. affect constricted, appropriate to context, hyper-intense, mod-labile. mood not assessed. no SI/HI/VH expressed. did report staff telling him homosexuality is evil, which is presumed to be AH. Diagnostics Vital Signs (24Hr): Vital Signs - 24 hr 04/14/21 06:00 Temperature 98.2 F Pulse Rate 94 Respiratory Rate 20 Blood Pressure 144/78 H Pulse Oximetry 100 Body Mass Index 21.2 Medications Medications Current Medications Generic Name Dose Route Start Last Admin Trade Name Freq PRN Reason Stop Dose Admin Acetaminophen 650 mg 04/06/21 20:25 04/07/21 01:09 Acetaminophen 325 Mg Tablet PO 650 mg Q6H PRN Administration Headache/Pain Mild Scale (1-3) Al Hydroxide/Mg Hydroxide 30 ml 04/06/21 20:25 Magnesium Hydrox/Alum Hydrox 30 Ml Oral.Susp PO Q6H PRN Heartburn/Nausea Diphenhydramine HCl 75 mg 04/12/21 08:00 04/13/21 21:29 Diphenhydramine Hcl 25 Mg Tablet PO 25 mg Q6H PRN Administration agitation, insomnia [place] Carbonate 450 mg 04/08/21 21:00 04/14/21 07:56 [place] Carbonate Er 450 Mg Tablet.Er PO 450 mg BID EMMANUEL Administration Magnesium Hydroxide 30 ml 04/06/21 20:25 Milk Of Magnesia 30 Ml Oral.Susp PO DAILY PRN Constipation Olanzapine 5 mg 04/06/21 21:42 04/09/21 05:25 Olanzapine 5 Mg Tablet PO 5 mg Q4H PRN Administration agitation, psychosis Olanzapine 20 mg 04/08/21 21:00 04/13/21 20:21 Olanzapine Odt 10 Mg Tab.Rapdis TRANSLINGU 20 mg BEDTIME EMMANUEL Administration Trazodone HCl 50 mg 04/06/21 20:25 Trazodone Hcl 50 Mg Tablet PO BEDTIME PRN Insomnia Allergies Allergies Allergy/AdvReac Type Severity Reaction Status Date / Time No Known Allergies Allergy Verified 04/06/21 20:25 Assessment & Plan Assessment & Plan (1) Evelyne: Status: Acute Code(s): F30.9 - Manic episode, unspecified Assessment and Plan: / with decompensated bipolar diathesis --no acute medical issues. Assessment and Plan: lithium 450 BID; increased to 600 BID as of 04/14 HS. zydis 20 QHS; increased to 30 QHS as of 04/14. PRNs for unsafe behavior or agitation (haldol 10, ativan 2, benadryl 50 IM has worked well). pt filed and then retracted 3-day notice. CV revoked and commitment filed for on 04/09. pt accepting medication more consistently and sleeping much more starting around 04/09. Greater than 50% of the session was spent on counseling and/or coordination of care Reason for contiued inpatient stay Substantial Risk for: inability to function and rapid decompensation
[2021-04-14] MEDS: OLANZapine 5 MG TABLET PO ×2 (14:00→23:59)
[2021-04-14] MEDS: diphenhydrAMINE HCL 25 MG TABLET 75 MG PO ×3 (14:00→20:43)
[2021-04-14 18:00] VITALS: BP 141/76; PULSE 114; RESP 17; TEMP 37.2; O2SAT 98
[2021-04-14] MEDS: OLANZapine ODT 10 MG TAB.RAPDIS 30 MG TRANSLINGU (20:42)
[2021-04-14] MEDS: Lithium Carbonate ER 300 MG TABLET.ER 600 MG PO (20:43)
[2021-04-15] MEDS: Lithium Carbonate ER 300 MG TABLET.ER 600 MG PO ×2 (08:00→19:42)
[2021-04-15] MEDS: diphenhydrAMINE HCL 25 MG TABLET 75 MG PO (10:08)
[2021-04-15 10:17] VITALS: PULSE 104; O2SAT 98
[2021-04-15] MEDS: OLANZapine 5 MG TABLET PO ×2 (10:31→16:17)
[2021-04-15] MEDS: Acetaminophen 325 MG TABLET 650 MG PO ×2 (11:41→17:56)
--- NOTE | 2021-04-15 15:16 | HO.PSYCHPN ---
Subjective Subjective Date of Service: 04/15/21 Reason For Visit: Bipolar disorder Interim History: pt increasingly appearing more settled and organized. he expressed an interest in avoiding legal involvement and so the possibility of his signing in voluntarily was discussed, and he seemed interested. he wanted to speak with his baker paint first and was left to do so. he was seen by staff counsel later who discussed the matter with him and he signed the form but said he wished to discuss it with MD prior to completing the form. on meeting again with MD (for the third time today) pt exhibited a lot of ambivalence about signing in and paranoia about MD. he tucked the form in his pocket and said he would think about it. per staff, remains on 1:1 out of his room. attended 2 of 3 groups yesterday. occasionally oppositional and rude. suspicious, paranoid. had PRN zyprexa and was calmer and quieter after. stating he feels talked down to by this jingle writer. taking medications. refusing VS. Mental Status Exam Mental Status Exam Narrative: appropriately dressed and groomed. no PMA/PMR. largely cooperative with interview. speech incr in amount, nml rate, nml loudness; decr in latency, nml in prosody. thoughts focused on legal rights and process, desire to discharge, lack of trust in MD. affect constricted, appropriate to context, normo-intense, non-labile. mood not assessed. no SI/HI/VH expressed. did report staff telling him homosexuality is evil, which is presumed to be AH. Diagnostics Vital Signs (24Hr): Vital Signs - 24 hr 04/14/21 18:00 04/15/21 10:17 Temperature 98.9 F Pulse Rate 114 H 104 H Respiratory Rate 17 Blood Pressure 141/76 H Pulse Oximetry 98 98 Body Mass Index 21.2 Medications Medications Current Medications Generic Name Dose Route Start Last Admin Trade Name Freq PRN Reason Stop Dose Admin Acetaminophen 650 mg 04/06/21 20:25 04/15/21 11:41 Acetaminophen 325 Mg Tablet PO 650 mg Q6H PRN Administration Headache/Pain Mild Scale (1-3) Al Hydroxide/Mg Hydroxide 30 ml 04/06/21 20:25 Magnesium Hydrox/Alum Hydrox 30 Ml Oral.Susp PO Q6H PRN Heartburn/Nausea Diphenhydramine HCl 25 mg 04/15/21 11:38 Diphenhydramine Hcl 25 Mg Tablet PO Q6H PRN agitation, insomnia [place] Carbonate 600 mg 04/14/21 21:00 04/15/21 08:00 [place] Carbonate Er 300 Mg Tablet.Er PO 600 mg BID EMMANUEL Administration Magnesium Hydroxide 30 ml 04/06/21 20:25 Milk Of Magnesia 30 Ml Oral.Susp PO DAILY PRN Constipation Olanzapine 5 mg 04/06/21 21:42 04/15/21 10:31 Olanzapine 5 Mg Tablet PO 5 mg Q4H PRN Administration agitation, psychosis Olanzapine 30 mg 04/14/21 21:00 04/14/21 20:42 Olanzapine Odt 10 Mg Tab.Rapdis TRANSLINGU 30 mg BEDTIME EMMANUEL Administration Trazodone HCl 50 mg 04/06/21 20:25 Trazodone Hcl 50 Mg Tablet PO BEDTIME PRN Insomnia Allergies Allergies Allergy/AdvReac Type Severity Reaction Status Date / Time No Known Allergies Allergy Verified 04/06/21 20:25 Assessment & Plan Assessment & Plan (1) Evelyne: Status: Acute Code(s): F30.9 - Manic episode, unspecified Assessment and Plan: 20/m with decompensated bipolar diathesis --no acute medical issues. Assessment and Plan: lithium 450 BID; increased to 600 BID as of 04/14 HS. zydis 20 QHS; increased to 30 QHS as of 04/14. PRNs for unsafe behavior or agitation (haldol 10, ativan 2, benadryl 50 IM has worked well). pt filed and then retracted 3-day notice. CV revoked and commitment filed for on 04/09. pt accepting medication more consistently and sleeping much more starting around 04/09. commitment hearing 04/16. Greater than 50% of the session was spent on counseling and/or coordination of care Reason for contiued inpatient stay Substantial Risk for: harm to self, inability to function and rapid decompensation
[2021-04-15] MEDS: diphenhydrAMINE HCL 25 MG TABLET PO (20:41)
[2021-04-15 20:47] VITALS: BP 132/79; PULSE 109; TEMP 36.9; O2SAT 97
[2021-04-15] MEDS: OLANZapine ODT 10 MG TAB.RAPDIS 30 MG TRANSLINGU (21:47)
[2021-04-16] MEDS: Multivitamin TABLET 1 TAB PO (08:03)
[2021-04-16] MEDS: Lithium Carbonate ER 300 MG TABLET.ER 600 MG PO ×2 (08:03→20:28)
[2021-04-16 08:08] VITALS: BP 143/78; PULSE 101; RESP 18; TEMP 36.2; O2SAT 99
[2021-04-16] MEDS: Acetaminophen 325 MG TABLET 650 MG PO ×3 (08:42→21:00)
--- NOTE | 2021-04-16 12:11 | HO.PSYCHPN ---
Subjective Subjective Date of Service: 04/16/21 Reason For Visit: Bipolar disorder Interim History: pt noted to be labile this morning, disorganized, overheard crying on the phone with someone. later found in his room, talking of switching MDs bcse he doesn't trust financial writer. his plan to do this is to call his PCP today and get a referral. asking for discharge today, MD declines his request. pt reminded that his hearing date has been delayed to next week. he asserts he has signed a 3-day instead. pt stating he and MD do not connect, begins asking MD about MD's cheondoism beliefs. MD declines to answer pt's questions, which leads pt to assert MD does not believe in god and that therefore MD cannot understand him or treat him. Md has repeatedly asked pt if there is anything MD may do to help him today but pt is not redirectable from his cheondoism focus. MD terminates interview. Mental Status Exam Mental Status Exam Narrative: appropriately dressed and groomed. no PMA/PMR. largely cooperative with interview. speech incr in amount, nml rate, nml loudness; decr in latency, nml in prosody. thoughts focused on desire to discharge, lack of trust in MD, cheondoism belief. affect constricted, appropriate to context, normo-intense, mod-labile (tearful in milieu). mood not assessed. no SI/HI/VH expressed. did report staff telling him homosexuality is evil, which is presumed to be AH. Diagnostics Vital Signs (24Hr): Vital Signs - 24 hr 04/15/21 20:47 04/16/21 08:08 Temperature 98.4 F 97.1 F Pulse Rate 109 H 101 H Respiratory Rate 18 Blood Pressure 132/79 143/78 H Pulse Oximetry 97 99 Body Mass Index 21.2 Medications Medications Current Medications Generic Name Dose Route Start Last Admin Trade Name Freq PRN Reason Stop Dose Admin Acetaminophen 650 mg 04/06/21 20:25 04/16/21 08:42 Acetaminophen 325 Mg Tablet PO 650 mg Q6H PRN Administration Headache/Pain Mild Scale (1-3) Al Hydroxide/Mg Hydroxide 30 ml 04/06/21 20:25 Magnesium Hydrox/Alum Hydrox 30 Ml Oral.Susp PO Q6H PRN Heartburn/Nausea Diphenhydramine HCl 25 mg 04/15/21 11:38 04/15/21 20:41 Diphenhydramine Hcl 25 Mg Tablet PO 25 mg Q6H PRN Administration agitation, insomnia [place] Carbonate 600 mg 04/14/21 21:00 04/16/21 08:03 [place] Carbonate Er 300 Mg Tablet.Er PO 600 mg BID EMMANUEL Administration Magnesium Hydroxide 30 ml 04/06/21 20:25 Milk Of Magnesia 30 Ml Oral.Susp PO DAILY PRN Constipation Multivitamins/Vitamin C 1 tab 04/16/21 09:00 04/16/21 08:03 Multivitamin Tablet PO 1 tab DAILY EMMANUEL Administration Olanzapine 5 mg 04/06/21 21:42 04/15/21 16:17 Olanzapine 5 Mg Tablet PO 5 mg Q4H PRN Administration agitation, psychosis Olanzapine 30 mg 04/14/21 21:00 04/15/21 21:47 Olanzapine Odt 10 Mg Tab.Rapdis TRANSLINGU 30 mg BEDTIME EMMANUEL Administration Trazodone HCl 50 mg 04/06/21 20:25 Trazodone Hcl 50 Mg Tablet PO BEDTIME PRN Insomnia Allergies Allergies Allergy/AdvReac Type Severity Reaction Status Date / Time No Known Allergies Allergy Verified 04/06/21 20:25 Assessment & Plan Assessment & Plan (1) Evelyne: Status: Acute Code(s): F30.9 - Manic episode, unspecified Assessment and Plan: 20/ with decompensated bipolar diathesis --no acute medical issues. Assessment and Plan: lithium 450 BID; increased to 600 BID as of 04/14 HS. check labs 04/20. zydis 20 QHS; increased to 30 QHS as of 04/14. PRNs for unsafe behavior or agitation (haldol 10, ativan 2, benadryl 50 IM has worked well). pt filed and then retracted 3-day notice. CV revoked and commitment filed for on 04/09. pt accepting medication more consistently and sleeping much more starting around 04/09. commitment hearing 04/23. Greater than 50% of the session was spent on counseling and/or coordination of care Reason for contiued inpatient stay Substantial Risk for: inability to function and rapid decompensation
[2021-04-16 18:00] VITALS: BP 150/86; PULSE 100; RESP 18; TEMP 36.6; O2SAT 98
[2021-04-16] MEDS: OLANZapine 5 MG TABLET PO (18:07)
[2021-04-16] MEDS: OLANZapine ODT 10 MG TAB.RAPDIS 30 MG TRANSLINGU (20:31)
[2021-04-17] MEDS: Multivitamin TABLET 1 TAB PO (07:53)
[2021-04-17] MEDS: Lithium Carbonate ER 300 MG TABLET.ER 600 MG PO ×2 (07:53→19:44)
[2021-04-17 07:55] VITALS: BP 139/77; PULSE 111; RESP 18; TEMP 36.4; O2SAT 99
[2021-04-17] MEDS: Acetaminophen 325 MG TABLET 650 MG PO (08:11)
[2021-04-17 11:50] LABS: COVID-19 Test Negative (Negative)
--- NOTE | 2021-04-17 14:38 | HO.PSYCHPN ---
Subjective Subjective Date of Service: 04/17/21 Reason For Visit: Bipolar disorder Interim History: pt asking to speak with MD and SW together, which is accommodated. pt engages in very long monologue which can be boiled down to he would like to be discharged today. he denies he has bipolar disorder, states MD cannot work with him well bcse he believes MD does not believe in god, he has a good aftercare plan, etc. pt ultimately seems to realize MD will not discharge him today and disengages. per staff, pt had a good evening. was talking to staff about his trauma and the restraints he experienced here. took only 20 mg of zyprexa rather than the 30 prescribed. Mental Status Exam Mental Status Exam Narrative: appropriately dressed and groomed. no PMA/PMR. cooperative with interview. speech incr in amount, nml rate, nml loudness; decr in latency, nml in prosody. thoughts focused on desire to discharge, lack of trust in MD, mu-ism belief. affect constricted, appropriate to context, normo-intense, non-labile. mood not assessed. no SI/HI/VH expressed. Diagnostics Vital Signs (24Hr): Vital Signs - 24 hr 04/16/21 18:00 04/17/21 07:55 Temperature 97.8 F 97.5 F Pulse Rate 100 111 H Respiratory Rate 18 18 Blood Pressure 150/86 H 139/77 Pulse Oximetry 98 99 Body Mass Index 21.2 Labs Labs: Laboratory Results - last 48 hr 04/17/21 11:27 COVID-19 ([facility]AN[facility]) Negative COVID-19 Clin Com See Note Medications Medications Current Medications Generic Name Dose Route Start Last Admin Trade Name Freq PRN Reason Stop Dose Admin Acetaminophen 975 mg 04/17/21 12:49 Acetaminophen 325 Mg Tablet PO Q6H PRN Headache/Pain Mild Scale (1-3) Al Hydroxide/Mg Hydroxide 30 ml 04/06/21 20:25 Magnesium Hydrox/Alum Hydrox 30 Ml Oral.Susp PO Q6H PRN Heartburn/Nausea Diphenhydramine HCl 25 mg 04/15/21 11:38 04/15/21 20:41 Diphenhydramine Hcl 25 Mg Tablet PO 25 mg Q6H PRN Administration agitation, insomnia [place] Carbonate 600 mg 04/14/21 21:00 04/17/21 07:53 [place] Carbonate Er 300 Mg Tablet.Er PO 600 mg BID EMMANUEL Administration Magnesium Hydroxide 30 ml 04/06/21 20:25 Milk Of Magnesia 30 Ml Oral.Susp PO DAILY PRN Constipation Multivitamins/Vitamin C 1 tab 04/16/21 09:00 04/17/21 07:53 Multivitamin Tablet PO 1 tab DAILY EMMANUEL Administration Olanzapine 5 mg 04/06/21 21:42 04/16/21 18:07 Olanzapine 5 Mg Tablet PO 5 mg Q4H PRN Administration agitation, psychosis Olanzapine 30 mg 04/14/21 21:00 04/16/21 20:31 Olanzapine Odt 10 Mg Tab.Rapdis TRANSLINGU 20 mg BEDTIME EMMANUEL Administration Trazodone HCl 50 mg 04/06/21 20:25 Trazodone Hcl 50 Mg Tablet PO BEDTIME PRN Insomnia Allergies Allergies Allergy/AdvReac Type Severity Reaction Status Date / Time No Known Allergies Allergy Verified 04/06/21 20:25 Assessment & Plan Assessment & Plan (1) Evelyne: Status: Acute Code(s): F30.9 - Manic episode, unspecified Assessment and Plan: 20/ with decompensated bipolar diathesis --no acute medical issues. Assessment and Plan: lithium 450 BID; increased to 600 BID as of 04/14 HS. check labs 04/20. zydis 20 QHS; increased to 30 QHS as of 04/14. PRNs for unsafe behavior or agitation (haldol 10, ativan 2, benadryl 50 IM has worked well). pt filed and then retracted 3-day notice. CV revoked and commitment filed for on 04/09. pt accepting medication more consistently and sleeping much more starting around 04/09. commitment hearing 04/23. Greater than 50% of the session was spent on counseling and/or coordination of care Reason for contiued inpatient stay Substantial Risk for: inability to function and rapid decompensation
[2021-04-17] MEDS: Acetaminophen 325 MG TABLET 975 MG PO ×2 (14:42→20:13)
[2021-04-17] MEDS: diphenhydrAMINE HCL 25 MG TABLET PO ×2 (15:35→20:53)
[2021-04-17 18:00] VITALS: BP 141/78; PULSE 93; RESP 16; TEMP 37.2; O2SAT 99
[2021-04-17] MEDS: OLANZapine ODT 10 MG TAB.RAPDIS 30 MG TRANSLINGU (19:44)
[2021-04-18 07:40] VITALS: BP 130/72; PULSE 94; RESP 16; TEMP 36.6; O2SAT 97
[2021-04-18] MEDS: Lithium Carbonate ER 300 MG TABLET.ER 600 MG PO ×2 (08:07→20:09)
[2021-04-18] MEDS: Acetaminophen 325 MG TABLET 975 MG PO ×3 (08:07→23:29)
[2021-04-18] MEDS: Multivitamin TABLET 1 TAB PO (08:07)
--- NOTE | 2021-04-18 16:06 | HO.PSYCHPN ---
Subjective Subjective Date of Service: 04/18/21 Reason For Visit: Bipolar disorder Subjective Notes: Section 7 Guardianship: No Interim History: i have ptsd Mental Status Exam Mental Status Exam Narrative: appropriately dressed and groomed. no PMA/PMR. cooperative with interview. speech incr in amount, nml rate, nml loudness; decr in latency, nml in prosody. thoughts focused on desire to discharge, lack of trust in MD, mormon belief. affect constricted, appropriate to context, normo-intense, non-labile. . Mood anxious but appropriate not aggressive or threatening overly elaborate in thought agreeable to not taking hallucinogens marijuana alcohol or other mind-altering substances. Does not feel he has bipolar but is open to the fact that has severe disruption of functioning secondary to use of Salvia and mushrooms Diagnostics Vital Signs (24Hr): Vital Signs - 24 hr 04/17/21 18:00 04/18/21 07:40 Temperature 99.0 F 97.9 F Pulse Rate 93 94 Respiratory Rate 16 16 Blood Pressure 141/78 H 130/72 Pulse Oximetry 99 97 Body Mass Index 21.2 Labs Labs: Laboratory Results - last 48 hr 04/17/21 11:27 COVID-19 ([facility]AN[facility]) Negative COVID-19 Clin Com See Note Medications Medications Current Medications Generic Name Dose Route Start Last Admin Trade Name Freq PRN Reason Stop Dose Admin Acetaminophen 975 mg 04/17/21 12:49 04/18/21 14:41 Acetaminophen 325 Mg Tablet PO 975 mg Q6H PRN Administration Headache/Pain Mild Scale (1-3) Al Hydroxide/Mg Hydroxide 30 ml 04/06/21 20:25 Magnesium Hydrox/Alum Hydrox 30 Ml Oral.Susp PO Q6H PRN Heartburn/Nausea Diphenhydramine HCl 25 mg 04/15/21 11:38 04/17/21 20:53 Diphenhydramine Hcl 25 Mg Tablet PO 25 mg Q6H PRN Administration agitation, insomnia [place] Carbonate 600 mg 04/14/21 21:00 04/18/21 08:07 [place] Carbonate Er 300 Mg Tablet.Er PO 600 mg BID EMMANUEL Administration Magnesium Hydroxide 30 ml 04/06/21 20:25 Milk Of Magnesia 30 Ml Oral.Susp PO DAILY PRN Constipation Multivitamins/Vitamin C 1 tab 04/16/21 09:00 04/18/21 08:07 Multivitamin Tablet PO 1 tab DAILY EMMANUEL Administration Olanzapine 5 mg 04/06/21 21:42 04/16/21 18:07 Olanzapine 5 Mg Tablet PO 5 mg Q4H PRN Administration agitation, psychosis Olanzapine 30 mg 04/14/21 21:00 04/17/21 19:44 Olanzapine Odt 10 Mg Tab.Rapdis TRANSLINGU 20 mg BEDTIME EMMANUEL Administration Trazodone HCl 50 mg 04/06/21 20:25 Trazodone Hcl 50 Mg Tablet PO BEDTIME PRN Insomnia Allergies Allergies Allergy/AdvReac Type Severity Reaction Status Date / Time No Known Allergies Allergy Verified 04/06/21 20:25 Assessment & Plan Assessment & Plan (1) Evelyne: Status: Acute Code(s): F30.9 - Manic episode, unspecified Assessment and Plan: with decompensated bipolar diathesis --no acute medical issues. Assessment and Plan: lithium 450 BID; increased to 600 BID as of 04/14 HS. check labs 04/20. zydis 20 QHS; increased to 30 QHS as of 04/14. PRNs for unsafe behavior or agitation (haldol 10, ativan 2, benadryl 50 IM has worked well). pt filed and then retracted 3-day notice. CV revoked and commitment filed for on 04/09. pt accepting medication more consistently and sleeping much more starting around 04/09. commitment hearing 04/23. Above reviewed patient cooperative difficulty integrating information regarding his mormon beliefs and events of the past few months He has been excepting Zyprexa 20 mg and lithium Greater than 50% of the session was spent on counseling and/or coordination of care Reason for contiued inpatient stay Substantial Risk for: harm to self, inability to function and rapid decompensation
[2021-04-18 18:35] VITALS: BP 135/77; PULSE 107; RESP 16; TEMP 37.7; O2SAT 96
[2021-04-18] MEDS: OLANZapine ODT 10 MG TAB.RAPDIS 30 MG TRANSLINGU (20:09)
[2021-04-18 21:24] VITALS: BP 141/83; PULSE 103; RESP 19; TEMP 37.3; O2SAT 99
[2021-04-18] MEDS: diphenhydrAMINE HCL 25 MG TABLET PO (23:30)
--- NOTE | 2021-04-19 01:15 | PC.NURSE ---
only took 20 mg of the 30 mg dose prescribed for zyprexa
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
[2021-04-19] MEDS: Acetaminophen 325 MG TABLET 975 MG PO ×3 (06:59→20:13)
[2021-04-19 07:50] VITALS: BP 142/76; PULSE 95; RESP 16; TEMP 36.8; O2SAT 99
[2021-04-19] MEDS: Multivitamin TABLET 1 TAB PO (08:18)
[2021-04-19] MEDS: Lithium Carbonate ER 300 MG TABLET.ER 600 MG PO ×2 (08:18→20:12)
[2021-04-19 19:53] VITALS: BP 160/70; PULSE 110; TEMP 36.9; O2SAT 98
[2021-04-19] MEDS: OLANZapine ODT 10 MG TAB.RAPDIS 30 MG TRANSLINGU (20:12)
[2021-04-19] MEDS: diphenhydrAMINE HCL 25 MG TABLET PO (21:01)
--- NOTE | 2021-04-19 23:35 | P.PNPSI_ITS ---
Subjective Subjective Date of Service: 04/18/21 Reason For Visit: Bipolar disorder Diagnostics Vital Signs (24Hr): Vital Signs - 24 hr 04/19/21 07:50 04/19/21 19:53 Temperature 98.3 F 98.5 F Pulse Rate 95 110 H Respiratory Rate 16 Blood Pressure 142/76 H 160/70 H Pulse Oximetry 99 98 Body Mass Index 21.2 Medications Medications Current Medications Generic Name Dose Route Start Last Admin Trade Name Freq PRN Reason Stop Dose Admin Acetaminophen 975 mg 04/17/21 12:49 04/19/21 20:13 Acetaminophen 325 Mg Tablet PO 975 mg Q6H PRN Administration Headache/Pain Mild Scale (1-3) Al Hydroxide/Mg Hydroxide 30 ml 04/06/21 20:25 Magnesium Hydrox/Alum Hydrox 30 Ml Oral.Susp PO Q6H PRN Heartburn/Nausea Diphenhydramine HCl 25 mg 04/15/21 11:38 04/19/21 21:01 Diphenhydramine Hcl 25 Mg Tablet PO 25 mg Q6H PRN Administration agitation, insomnia [place] Carbonate 600 mg 04/14/21 21:00 04/19/21 20:12 [place] Carbonate Er 300 Mg Tablet.Er PO 600 mg BID EMMANUEL Administration Magnesium Hydroxide 30 ml 04/06/21 20:25 Milk Of Magnesia 30 Ml Oral.Susp PO DAILY PRN Constipation Multivitamins/Vitamin C 1 tab 04/16/21 09:00 04/19/21 08:18 Multivitamin Tablet PO 1 tab DAILY EMMANUEL Administration Olanzapine 5 mg 04/06/21 21:42 04/16/21 18:07 Olanzapine 5 Mg Tablet PO 5 mg Q4H PRN Administration agitation, psychosis Olanzapine 30 mg 04/14/21 21:00 04/19/21 20:12 Olanzapine Odt 10 Mg Tab.Rapdis TRANSLINGU 20 mg BEDTIME EMMANUEL Administration Trazodone HCl 50 mg 04/06/21 20:25 Trazodone Hcl 50 Mg Tablet PO BEDTIME PRN Insomnia Allergies Allergies Allergy/AdvReac Type Severity Reaction Status Date / Time No Known Allergies Allergy Verified 04/06/21 20:25 Assessment & Plan Assessment & Plan (1) Evelyne: Status: Acute Code(s): F30.9 - Manic episode, unspecified Assessment and Plan: 20/m with decompensated bipolar diathesis --no acute medical issues. Assessment and Plan: lithium 450 BID; increased to 600 BID as of 04/14 HS. check labs 04/20. zydis 20 QHS; increased to 30 QHS as of 04/14. PRNs for unsafe behavior or agitation (haldol 10, ativan 2, benadryl 50 IM has worked well). pt filed and then retracted 3-day notice. CV revoked and commitment filed for on 04/09. pt accepting medication more consistently and sleeping much more starting around 04/09. commitment hearing 04/23. Above reviewed patient cooperative difficulty integrating information regarding his restorationism beliefs and events of the past few months He has been acepting Zyprexa 20 mg and lithium has has difficult time taking this in from a psychiatric perspective and however relates to his identity has a restorationism person Greater than 50% of the session was spent on counseling and/or coordination of care Reason for contiued inpatient stay Substantial Risk for: harm to self and rapid decompensation
--- NOTE | 2021-04-19 23:37 | P.PNPSI_ITS ---
Subjective Subjective Date of Service: 04/19/21 Reason For Visit: Bipolar disorder Subjective Notes: [place] Warning and Section 7 Guardianship: No Medication Compliance: Intermittent Mental Status Exam Mental Status Exam Narrative: overly elaborate Patient Appearance: Well Grooomed Patient Orientation: Person, Place, Time and Situation Level of Consciousness: Awake Patient Behavior: Cooperative Mood Description: Calm and Anxious Affect Description: Apprehensive and Expansive Speech Pattern: Clear Hallucinations: None Delusions: Grandiose Thought Content: positive for Circumstantial Judgement: Fair Judgement and Insight: open to toxic psychosis not open to bipolar Diagnostics Vital Signs (24Hr): Vital Signs - 24 hr 04/19/21 07:50 04/19/21 19:53 Temperature 98.3 F 98.5 F Pulse Rate 95 110 H Respiratory Rate 16 Blood Pressure 142/76 H 160/70 H Pulse Oximetry 99 98 Body Mass Index 21.2 Labs Results: 04/20/21 07:06 04/20/21 07:06 Medications Medications Current Medications Generic Name Dose Route Start Last Admin Trade Name Freq PRN Reason Stop Dose Admin Acetaminophen 975 mg 04/17/21 12:49 04/19/21 20:13 Acetaminophen 325 Mg Tablet PO 975 mg Q6H PRN Administration Headache/Pain Mild Scale (1-3) Al Hydroxide/Mg Hydroxide 30 ml 04/06/21 20:25 Magnesium Hydrox/Alum Hydrox 30 Ml Oral.Susp PO Q6H PRN Heartburn/Nausea Diphenhydramine HCl 25 mg 04/15/21 11:38 04/19/21 21:01 Diphenhydramine Hcl 25 Mg Tablet PO 25 mg Q6H PRN Administration agitation, insomnia [place] Carbonate 600 mg 04/14/21 21:00 04/19/21 20:12 [place] Carbonate Er 300 Mg Tablet.Er PO 600 mg BID EMMANUEL Administration Magnesium Hydroxide 30 ml 04/06/21 20:25 Milk Of Magnesia 30 Ml Oral.Susp PO DAILY PRN Constipation Multivitamins/Vitamin C 1 tab 04/16/21 09:00 04/19/21 08:18 Multivitamin Tablet PO 1 tab DAILY EMMANUEL Administration Olanzapine 5 mg 04/06/21 21:42 04/16/21 18:07 Olanzapine 5 Mg Tablet PO 5 mg Q4H PRN Administration agitation, psychosis Olanzapine 30 mg 04/14/21 21:00 04/19/21 20:12 Olanzapine Odt 10 Mg Tab.Rapdis TRANSLINGU 20 mg BEDTIME EMMANUEL Administration Trazodone HCl 50 mg 04/06/21 20:25 Trazodone Hcl 50 Mg Tablet PO BEDTIME PRN Insomnia Allergies Allergies Allergy/AdvReac Type Severity Reaction Status Date / Time No Known Allergies Allergy Verified 04/06/21 20:25 Assessment & Plan Assessment & Plan (1) Evelyne: Status: Acute Code(s): F30.9 - Manic episode, unspecified Assessment and Plan: / with decompensated bipolar diathesis --no acute medical issues. Assessment and Plan: jehovah's witness preoccupation not grossly delusional not combative taking partial doses planzapine lithium agrees to stop substances Greater than 50% of the session was spent on counseling and/or coordination of care Reason for contiued inpatient stay Substantial Risk for: rapid decompensation
[2021-04-20] MEDS: Acetaminophen 325 MG TABLET 975 MG PO ×3 (05:44→20:13)
[2021-04-20 07:19] LABS: MANUAL DIFF FLAG NO
[2021-04-20 07:30] LABS: Basophils Percent Auto 0.6 % (0-2); Eosinophils Absolute Auto 0.2 X10*3/uL (0.0-0.4); Eosinophils Percent Auto 3.4 % (0-4); Hematocrit 43.6 % (42-52); Hemoglobin 14.9 g/dl (14.0-18.0); Imm Gran Abs Auto 0.01 X10*3/uL (0.00-0.03); Imm Gran Pct Auto 0.2 % (0.0-0.4); Lymphocytes Absolute Auto 1.8 X10*3/uL (1.2-4.9); Lymphocytes Percent Auto 35.5 % (20-40); Mean Corpuscular HGB Conc 34.2 g/dl (31.0-36.0); Mean Corpuscular Volume 87.9 fL (80-98); Mean Platelet Volume 9.3 fL (9.4-12.4); Monocytes Absolute Auto 0.6 X10*3/uL (0.1-1.2); Monocytes Percent Auto 11.8 % (2-11); Neutrophils Absolute Auto 2.4 X10*3/uL (2.0-8.3); Neutrophils Percent Auto 48.5 % (45-73); Platelet Count 162 X10*3/uL (160-400); Red Blood Count 4.96 X10*6/uL (4.60-5.80); Red Cell Distribution Width 11.9 % (11.0-16.0)
[2021-04-20 07:37] LABS: Lithium 0.49 mmol/L (0.60-1.20)
[2021-04-20 07:42] LABS: Anion Gap 11 (12-20); Blood Urea Nitrogen 11 mg/dL (9-16); Calcium 9.7 mg/dL (8.4-10.2); Carbon Dioxide 27 mmol/L (22-29); Chloride 108 mmol/L (96-108); Creatinine Clr Calc Pharmacy 139.4; Estimated Glomerular Filt Rate > 60; Glucose Random 96 mg/dL (60-115); Potassium 4.2 mmol/L (3.3-5.1); Sodium 142 mmol/L (135-145)
[2021-04-20 07:45] VITALS: BP 135/85; PULSE 104; O2SAT 100
[2021-04-20] MEDS: Lithium Carbonate ER 300 MG TABLET.ER 600 MG PO (08:00)
[2021-04-20] MEDS: Multivitamin TABLET 1 TAB PO (08:01)
[2021-04-20] MEDS: diphenhydrAMINE HCL 25 MG TABLET PO ×2 (13:56→20:12)
--- NOTE | 2021-04-20 14:56 | HO.PSYCHPN ---
Subjective Subjective Date of Service: 04/20/21 Reason For Visit: Bipolar disorder Interim History: pt perseverative about discharge, labile with tearfulness. reviewing his desire to be home with his family, plan to engage in IOP after discharge, denial of bipolar disorder Dx. notes sub-therapeutic lithium level and sugeests increase in dosing from 600 BID to 600/900. pt is reluctantly agreeable. per staff, pt requesting discharge. feels he is in intermediate here. pacing, tearful at times. no bizarre behaviors. c/o left deltoid pain from injection a week ago. taking a lot of tylenol. hearing scheduled for . Mental Status Exam Mental Status Exam Narrative: appropriately dressed and groomed. no PMA/PMR. cooperative with interview. speech incr in amount, nml rate, nml loudness; decr in latency, nml in prosody. thoughts focused on desire to discharge, need to be with family, lack of bipolar disorder. affect constricted, appropriate to context, normo-intense, labile (tearful repeatedly). mood 05/01. no SI/HI/VH expressed. Diagnostics Vital Signs (24Hr): Vital Signs - 24 hr 04/19/21 19:53 04/20/21 07:45 Temperature 98.5 F Pulse Rate 110 H 104 H Blood Pressure 160/70 H 135/85 Pulse Oximetry 98 100 Body Mass Index 21.2 Labs Results: 04/20/21 07:06 04/20/21 07:06 Labs: Laboratory Results - last 48 hr 04/20/21 04/20/21 04/20/21 07:06 07:06 07:06 WBC 5.0 RBC 4.96 Hgb 14.9 Hct 43.6 MCV 87.9 MCH 30.0 MCHC 34.2 RDW 11.9 Plt Count 162 MPV 9.3 L Immature Gran % (Auto) 0.2 Neut % (Auto) 48.5 Lymph % (Auto) 35.5 [place] % (Auto) 11.8 H Eos % (Auto) 3.4 Baso % (Auto) 0.6 Lymph # (Auto) 1.8 [place] # (Auto) 0.6 Eos # (Auto) 0.2 Baso # (Auto) 0.0 Abs Immat Gran (auto) 0.01 Absolute Neuts (auto) 2.4 Absolute Nucleated RBC 0.000 Nucleated RBC % (auto) 0.0 Sodium 142 Potassium 4.2 Chloride 108 Carbon Dioxide 27 Anion Gap 11 L BUN 11 Creatinine 0.81 Estim Creat Clear Calc 139.4 Estimated GFR > 60 Random Glucose 96 Calcium 9.7 [place] 0.49 L Medications Medications Current Medications Generic Name Dose Route Start Last Admin Trade Name Freq PRN Reason Stop Dose Admin Acetaminophen 975 mg 04/17/21 12:49 04/20/21 05:44 Acetaminophen 325 Mg Tablet PO 975 mg Q6H PRN Administration Headache/Pain Mild Scale (1-3) Al Hydroxide/Mg Hydroxide 30 ml 04/06/21 20:25 Magnesium Hydrox/Alum Hydrox 30 Ml Oral.Susp PO Q6H PRN Heartburn/Nausea Diphenhydramine HCl 25 mg 04/15/21 11:38 04/20/21 13:56 Diphenhydramine Hcl 25 Mg Tablet PO 25 mg Q6H PRN Administration agitation, insomnia [place] Carbonate 600 mg 04/21/21 09:00 [place] Carbonate Er 300 Mg Tablet.Er PO DAILY EMMANUEL [place] Carbonate 900 mg 04/20/21 21:00 [place] Carbonate Er 450 Mg Tablet.Er PO BEDTIME EMMANUEL Magnesium Hydroxide 30 ml 04/06/21 20:25 Milk Of Magnesia 30 Ml Oral.Susp PO DAILY PRN Constipation Multivitamins/Vitamin C 1 tab 04/16/21 09:00 04/20/21 08:01 Multivitamin Tablet PO 1 tab DAILY EMMANUEL Administration Olanzapine 5 mg 04/06/21 21:42 04/16/21 18:07 Olanzapine 5 Mg Tablet PO 5 mg Q4H PRN Administration agitation, psychosis Olanzapine 20 mg 04/20/21 21:00 Olanzapine Odt 10 Mg Tab.Rapdis TRANSLINGU BEDTIME EMMANUEL Trazodone HCl 50 mg 04/06/21 20:25 Trazodone Hcl 50 Mg Tablet PO BEDTIME PRN Insomnia Allergies Allergies Allergy/AdvReac Type Severity Reaction Status Date / Time No Known Allergies Allergy Verified 04/06/21 20:25 Assessment & Plan Assessment & Plan (1) Evelyne: Status: Acute Code(s): F30.9 - Manic episode, unspecified Assessment and Plan: 20/m with decompensated bipolar diathesis --no acute medical issues. Assessment and Plan: lithium 450 BID; increased to 600 BID as of 8/24 HS. labs 04/20 show level 0.49. dosing increased to 600/900 as of 04/20. zydis 20 QHS; increased to 30 QHS as of 04/14. pt refusing to take any more than 20 for days, so dosing decreased to reflect actual dose being taken as of 04/20. PRNs for unsafe behavior or agitation (haldol 10, ativan 2, benadryl 50 IM has worked well). pt filed and then retracted 3-day notice. CV revoked and commitment filed for on 04/09. pt accepting medication more consistently and sleeping much more starting around 04/09. commitment hearing 04/23. Greater than 50% of the session was spent on counseling and/or coordination of care Reason for contiued inpatient stay Substantial Risk for: inability to function and rapid decompensation
[2021-04-20] MEDS: Lithium Carbonate ER 450 MG TABLET.ER 900 MG PO (20:12)
[2021-04-20] MEDS: OLANZapine ODT 10 MG TAB.RAPDIS 20 MG TRANSLINGU (20:13)
[2021-04-20 20:18] VITALS: TEMP 36.8; O2SAT 96
[2021-04-21 08:08] VITALS: BP 136/82; PULSE 105; RESP 18; TEMP 37; O2SAT 99
[2021-04-21] MEDS: Lithium Carbonate ER 300 MG TABLET.ER 600 MG PO (08:10)
[2021-04-21] MEDS: Multivitamin TABLET 1 TAB PO (08:10)
[2021-04-21] MEDS: Acetaminophen 325 MG TABLET 975 MG PO (08:11)
[2021-04-21] MEDS: diphenhydrAMINE HCL 25 MG TABLET PO ×2 (10:57→20:12)
--- NOTE | 2021-04-21 13:37 | P.PNPSI_ITS ---
Subjective Subjective Date of Service: 04/21/21 Reason For Visit: Bipolar disorder Interim History: pt perseverative about discharge, labile with tearfulness.? reviewing his desire to be home with his family. suggests is a more likely discharge date. per staff, pt requesting discharge.? feels he is? in detention here.? pacing, tearful at times.? no bizarre behaviors.? hearing scheduled for . Mental Status Exam Mental Status Exam Narrative: appropriately dressed and groomed. no PMA/PMR. cooperative with interview. speech incr in amount, rate; nml loudness; decr in latency, nml in prosody. thoughts focused on desire to discharge, need to be with family. affect constricted, appropriate to context, normo-intense, labile (tearful repeatedly). mood great. no SI/HI/VH expressed. Diagnostics Vital Signs (24Hr): Vital Signs - 24 hr 04/20/21 20:18 04/21/21 08:08 Temperature 98.2 F 98.6 F Pulse Rate 105 H Respiratory Rate 18 Blood Pressure 136/82 Pulse Oximetry 96 99 Body Mass Index 21.2 Labs Results: 04/20/21 07:06 04/20/21 07:06 Labs: Laboratory Results - last 48 hr 04/20/21 04/20/21 04/20/21 07:06 07:06 07:06 WBC 5.0 RBC 4.96 Hgb 14.9 Hct 43.6 MCV 87.9 MCH 30.0 MCHC 34.2 RDW 11.9 Plt Count 162 MPV 9.3 L Immature Gran % (Auto) 0.2 Neut % (Auto) 48.5 Lymph % (Auto) 35.5 [place] % (Auto) 11.8 H Eos % (Auto) 3.4 Baso % (Auto) 0.6 Lymph # (Auto) 1.8 [place] # (Auto) 0.6 Eos # (Auto) 0.2 Baso # (Auto) 0.0 Abs Immat Gran (auto) 0.01 Absolute Neuts (auto) 2.4 Absolute Nucleated RBC 0.000 Nucleated RBC % (auto) 0.0 Sodium 142 Potassium 4.2 Chloride 108 Carbon Dioxide 27 Anion Gap 11 L BUN 11 Creatinine 0.81 Estim Creat Clear Calc 139.4 Estimated GFR > 60 Random Glucose 96 Calcium 9.7 [place] 0.49 L Medications Medications Current Medications Generic Name Dose Route Start Last Admin Trade Name Freq PRN Reason Stop Dose Admin Acetaminophen 975 mg 04/17/21 12:49 04/21/21 08:11 Acetaminophen 325 Mg Tablet PO 975 mg Q6H PRN Administration Headache/Pain Mild Scale (1-3) Al Hydroxide/Mg Hydroxide 30 ml 04/06/21 20:25 Magnesium Hydrox/Alum Hydrox 30 Ml Oral.Susp PO Q6H PRN Heartburn/Nausea Diphenhydramine HCl 25 mg 04/15/21 11:38 04/21/21 10:57 Diphenhydramine Hcl 25 Mg Tablet PO 25 mg Q6H PRN Administration agitation, insomnia [place] Carbonate 600 mg 04/21/21 09:00 04/21/21 08:10 [place] Carbonate Er 300 Mg Tablet.Er PO 600 mg DAILY EMMANUEL Administration [place] Carbonate 900 mg 04/20/21 21:00 04/20/21 20:12 [place] Carbonate Er 450 Mg Tablet.Er PO 900 mg BEDTIME EMMANUEL Administration Magnesium Hydroxide 30 ml 04/06/21 20:25 Milk Of Magnesia 30 Ml Oral.Susp PO DAILY PRN Constipation Multivitamins/Vitamin C 1 tab 04/16/21 09:00 04/21/21 08:10 Multivitamin Tablet PO 1 tab DAILY EMMANUEL Administration Olanzapine 5 mg 04/06/21 21:42 04/16/21 18:07 Olanzapine 5 Mg Tablet PO 5 mg Q4H PRN Administration agitation, psychosis Olanzapine 20 mg 04/20/21 21:00 04/20/21 20:13 Olanzapine Odt 10 Mg Tab.Rapdis TRANSLINGU 20 mg BEDTIME EMMANUEL Administration Trazodone HCl 50 mg 04/06/21 20:25 Trazodone Hcl 50 Mg Tablet PO BEDTIME PRN Insomnia Allergies Allergies Allergy/AdvReac Type Severity Reaction Status Date / Time No Known Allergies Allergy Verified 04/06/21 20:25 Assessment & Plan Assessment & Plan (1) Evelyne: Status: Acute Code(s): F30.9 - Manic episode, unspecified Assessment and Plan: 20/m with decompensated bipolar diathesis --no acute medical issues. Assessment and Plan: restoration preoccupation not combative taking olanzapine and lithium Greater than 50% of the session was spent on counseling and/or coordination of care Reason for contiued inpatient stay Substantial Risk for: rapid decompensation
[2021-04-21] MEDS: Lithium Carbonate ER 450 MG TABLET.ER 900 MG PO (20:12)
[2021-04-21] MEDS: OLANZapine ODT 10 MG TAB.RAPDIS 20 MG TRANSLINGU (20:13)
[2021-04-21 20:14] VITALS: BP 142/81; PULSE 89; TEMP 36.6; O2SAT 95
[2021-04-22 08:00] VITALS: BP 144/81; PULSE 90; RESP 16; TEMP 37.2; O2SAT 99
[2021-04-22] MEDS: Lithium Carbonate ER 300 MG TABLET.ER 600 MG PO (08:05)
[2021-04-22] MEDS: Multivitamin TABLET 1 TAB PO (08:05)
[2021-04-22] MEDS: Acetaminophen 325 MG TABLET 975 MG PO (11:51)
--- NOTE | 2021-04-22 13:15 | HO.PSYCHPN ---
Subjective Subjective Date of Service: 04/22/21 Reason For Visit: Bipolar disorder Interim History: less labile, better-related, more insightful. feels the lithium has been helpful for stabilizing his mood. planning for discharge tomorrow, positive outlook. Mental Status Exam Mental Status Exam Narrative: appropriately dressed and groomed. no PMA/PMR. cooperative with interview. speech nml in amount, rate, loudness, latency, prosody. thoughts linear and logical without delusions or paranoia evident. affect more flexible, appropriate to context, normo-intense, non-labile. no SI/HI/VH expressed. Diagnostics Vital Signs (24Hr): Vital Signs - 24 hr 04/21/21 20:14 04/22/21 08:00 Temperature 97.8 F 99.0 F Pulse Rate 89 90 Respiratory Rate 16 Blood Pressure 142/81 H 144/81 H Pulse Oximetry 95 99 Body Mass Index 21.2 Labs Results: 04/20/21 07:06 04/20/21 07:06 Medications Medications Current Medications Generic Name Dose Route Start Last Admin Trade Name Freq PRN Reason Stop Dose Admin Acetaminophen 975 mg 04/17/21 12:49 04/22/21 11:51 Acetaminophen 325 Mg Tablet PO 975 mg Q6H PRN Administration Headache/Pain Mild Scale (1-3) Al Hydroxide/Mg Hydroxide 30 ml 04/06/21 20:25 Magnesium Hydrox/Alum Hydrox 30 Ml Oral.Susp PO Q6H PRN Heartburn/Nausea Diphenhydramine HCl 25 mg 04/15/21 11:38 04/21/21 20:12 Diphenhydramine Hcl 25 Mg Tablet PO 25 mg Q6H PRN Administration agitation, insomnia [place] Carbonate 600 mg 04/21/21 09:00 04/22/21 08:05 [place] Carbonate Er 300 Mg Tablet.Er PO 600 mg DAILY EMMANUEL Administration [place] Carbonate 900 mg 04/20/21 21:00 04/21/21 20:12 [place] Carbonate Er 450 Mg Tablet.Er PO 900 mg BEDTIME EMMANUEL Administration Magnesium Hydroxide 30 ml 04/06/21 20:25 Milk Of Magnesia 30 Ml Oral.Susp PO DAILY PRN Constipation Multivitamins/Vitamin C 1 tab 04/16/21 09:00 04/22/21 08:05 Multivitamin Tablet PO 1 tab DAILY EMMANUEL Administration Olanzapine 5 mg 04/06/21 21:42 04/16/21 18:07 Olanzapine 5 Mg Tablet PO 5 mg Q4H PRN Administration agitation, psychosis Olanzapine 20 mg 04/20/21 21:00 04/21/21 20:13 Olanzapine Odt 10 Mg Tab.Rapdis TRANSLINGU 20 mg BEDTIME EMMANUEL Administration Trazodone HCl 50 mg 04/06/21 20:25 Trazodone Hcl 50 Mg Tablet PO BEDTIME PRN Insomnia Allergies Allergies Allergy/AdvReac Type Severity Reaction Status Date / Time No Known Allergies Allergy Verified 04/06/21 20:25 Assessment & Plan Assessment & Plan (1) Evelyne: Status: Acute Code(s): F30.9 - Manic episode, unspecified Assessment and Plan: 20/ with decompensated bipolar diathesis --no acute medical issues. Assessment and Plan: not combative taking olanzapine and lithium Greater than 50% of the session was spent on counseling and/or coordination of care Reason for contiued inpatient stay Substantial Risk for: rapid decompensation
[2021-04-22 19:55] VITALS: BP 132/84; PULSE 100; RESP 18; TEMP 37.6; O2SAT 96
[2021-04-22] MEDS: Lithium Carbonate ER 450 MG TABLET.ER 900 MG PO (20:03)
[2021-04-22] MEDS: diphenhydrAMINE HCL 25 MG TABLET PO (20:03)
[2021-04-22] MEDS: OLANZapine ODT 10 MG TAB.RAPDIS 20 MG TRANSLINGU (20:03)
[2021-04-23] MEDS: Multivitamin TABLET 1 TAB PO (07:41)
[2021-04-23] MEDS: Lithium Carbonate ER 300 MG TABLET.ER 600 MG PO (07:41)
[2021-04-23 08:00] VITALS: BP 111/64; PULSE 106; RESP 16; TEMP 37.1; O2SAT 99
[2021-04-23 08:12] LABS: MANUAL DIFF FLAG NO
[2021-04-23 08:16] LABS: Basophils Percent Auto 0.4 % (0-2); Eosinophils Absolute Auto 0.1 X10*3/uL (0.0-0.4); Eosinophils Percent Auto 2.5 % (0-4); Hematocrit 44.4 % (42-52); Imm Gran Abs Auto 0.03 X10*3/uL (0.00-0.03); Imm Gran Pct Auto 0.5 % (0.0-0.4); Lymphocytes Absolute Auto 1.7 X10*3/uL (1.2-4.9); Lymphocytes Percent Auto 30.2 % (20-40); Mean Corpuscular HGB Conc 33.8 g/dl (31.0-36.0); Mean Corpuscular Hemoglobin 29.5 pg (27.0-33.0); Mean Corpuscular Volume 87.2 fL (80-98); Mean Platelet Volume 8.7 fL (9.4-12.4); Monocytes Absolute Auto 0.5 X10*3/uL (0.1-1.2); Neutrophils Absolute Auto 3.2 X10*3/uL (2.0-8.3); Neutrophils Percent Auto 57.4 % (45-73); Platelet Count 203 X10*3/uL (160-400); Red Blood Count 5.09 X10*6/uL (4.60-5.80); Red Cell Distribution Width 11.9 % (11.0-16.0); White Blood Count 5.6 X10*3/uL (4.8-10.8)
[2021-04-23 08:28] LABS: Anion Gap 11 (12-20); Blood Urea Nitrogen 12 mg/dL (9-16); Calcium 10.1 mg/dL (8.4-10.2); Carbon Dioxide 28 mmol/L (22-29); Chloride 103 mmol/L (96-108); Creatinine Clr Calc Pharmacy 134.4; Estimated Glomerular Filt Rate > 60; Glucose Random 106 mg/dL (60-115); Potassium 4.1 mmol/L (3.3-5.1); Sodium 138 mmol/L (135-145)
[2021-04-23 08:49] LABS: Lithium 0.77 mmol/L (0.60-1.20)
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
[2021-04-23 09:15] LABS: Estimated Average Glucose 94 mg/dL; Hemoglobin A1c % 4.9 %
[2021-04-23 09:16] LABS: Cholesterol 129 mg/dL; HDL Cholesterol 36 mg/dL; LDL Cholesterol Calculated 82 mg/dl; Triglycerides 59 mg/dL
--- NOTE | 2021-04-23 12:14 | PC.NURSE ---
Gian is Alert and oriented x 3 with stable vital signs. Gian was cooperative with discharge process and after teaching he denies any questions. He reports that he is more than ready for discharge . He rates as his depression as 0/10 and anxiety is 0/10. Gian appears neat, appropriately dressed and groomed. Patient reports no SI with no plan or intent, no HI with no plan or intent. Patient also denies any Auditory or visual hallucinations. Does not appear to be responding to any internal stimuli. Speech is appropriate with a calm tone of voice. Gian verbalizes understanding of local crisis numbers, when to access emergency services. He denied physical complaint.
== END 2021-04-23 11:05 | disposition home or self-care (01) | DRG 753 ==
PROVIDERS: Admitting Provider Psychiatry & Neurology Psychiatry; PCP Family Medicine; Visit Provider Psychiatry & Neurology Psychiatry
DX: F31.9 Bipolar disorder, unspecified (principal); Z20.822 Contact with and (suspected) exposure to COVID-19; Z91.5 Personal history of self-harm; Z79.899 Other long term (current) drug therapy
CPT/HCPCS: 36415; 80048; 80061; 80178; 83036; 85025; 87635; J1200; J2060; Q0163